=== PATIENT | female | born 1955 | race Caucasian/White ===

== ENCOUNTER 2017-09-28 00:04 | Emergency (ER) | payer BC, OTHER ==
--- NOTE | 2017-09-28 01:10 | EDPHYS ---
Physician Documentation [facility] Name: Qi Aguirre Age: 62 yrs Sex: Female : 1955 Arrival Date: 09/28/2017 Time: 00:04 Bed 19 Private MD: ED Physician Stewart Kim HPI: 09/28 00:58 This 62 yrs old Female presents to ER via Ambulatory with complaints of High jmm Blood Pressure. 00:58 The patient has elevated blood pressure and discovered this at home. Onset: The jmm symptoms/episode began/occurred yesterday. Modifying factors:. Associated signs and symptoms: Pertinent positives: headache. This is a 62 year old female with a history of htn that presents to the ED with elevated blood pressure which she noticied after developing a headache yesterday. Patient states headache is similar in nature to previous headaches. Patient denies chest pain or shortness of breath. Denies difficulty with urinations. States she was afraid to take old BP medication and requests refill. . Historical: - Allergies: 00:30 Sulfa (Sulfonamide Antibiotics); ea - PMHx: 00:30 Hypertension; ea - PSHx: 00:30 cataract surgery; ea - Immunization history:: Adult Immunizations not up to date. - Social history:: Smoking status: Patient/guardian denies using tobacco. - Ebola Screening: : No symptoms or risks identified at this time. ROS: 00:58 Constitutional: Negative for fever, chills, and weight loss, Cardiovascular: Negative jmm for chest pain, palpitations, and edema, Respiratory: Negative for shortness of breath, cough, wheezing, and pleuritic chest pain, Abdomen/GI: Negative for abdominal pain, nausea, vomiting, diarrhea, and constipation, Back: Negative for injury and pain, MS/Extremity: Negative for injury and deformity. 00:58 Neuro: Positive for headache. 00:58 All other systems are negative. Exam: 00:58 Head/Face: atraumatic. Chest/axilla: Normal chest wall appearance and motion. jmm Nontender with no deformity. No lesions are appreciated. Cardiovascular: Regular rate and rhythm. No gallops, murmurs, or rubs. Full/Equal distal pulses. Respiratory: Lungs have equal breath sounds bilaterally, clear to auscultation. No rales, rhonchi or wheezes noted. No increased work of breathing, no retractions or nasal flaring. Abdomen/GI: Soft, non-tender, with normal bowel sounds. No distension or tympany. No guarding or rebound. No evidence of tenderness throughout. 00:58 Constitutional: The patient appears in no acute distress, alert, awake. 00:58 Musculoskeletal/extremity: ROM: intact in all extremities. 00:58 Skin: Appearance: Color: normal in color. 00:58 Neuro: Orientation: is normal, Mentation: is normal, Memory: is normal, Gait: is steady. Vital Signs: 00:25 BP 181 / 101; Pulse 68; Resp 18; Temp 97.6(O); Pulse Ox 99% on R/A; Weight 64.41 kg; ea Height 5 ft. 4 in. (162.56 cm); Pain 0/10; 00:42 BP 158 / 92; Pulse 66; Resp 15; Pulse Ox 98% on R/A; mw2 01:53 BP 166 / 92; Pulse 60; Resp 18 S; Temp 97.8(O); Pulse Ox 99% ; Pain 0/10; ea 00:25 Body Mass Index 24.37 (64.41 kg, 162.56 cm) ea MDM: 00:48 Patient medically screened. [facility] 00:58 Data reviewed: vital signs, nurses notes. Counseling: I had a detailed discussion with christina the patient and/or guardian regarding: the historical points, exam findings, and any diagnostic results supporting the discharge/admit diagnosis, the need for outpatient follow up, to return to the emergency department if symptoms worsen or persist or if there are any questions or concerns that arise at home. Administered Medications: No medications were administered Disposition: 06:53 Co-signature as Attending Physician, Stewart Kim MD. rn Disposition: 09/28/17 01:09 Discharged to Home. Impression: Hypertension. - Condition is Stable. - Discharge Instructions: Hypertension. - Prescriptions for Enalapril Maleate 5 mg Oral Tablet - take 1 tablet by ORAL route once daily; 30 tablet. - Medication Reconciliation Form, Thank You Letter, Antibiotic Education, Prescription Opioid Use form. - Follow up: Private Physician; When: 2 - 3 days; Reason: Recheck today's complaints. Signatures: Kade Hood PA PA m Kim, Stewart, Usha Conte MD, rn RN RN ea Corrections: (The following items were deleted from the chart) 01:54 01:09 09/28/2017 01:09 Discharged to Home. Impression: Hypertension. Condition is ea Stable. Forms are Medication Reconciliation Form, Thank You Letter, Antibiotic Education, Prescription Opioid Use. Follow up: Private Physician; When: 2 - 3 days; Reason: Recheck today's complaints. christina
--- NOTE | 2017-09-28 01:10 | ER ---
Nurse's Notes [facility] Name: Qi Aguirre Age: 62 yrs Sex: Female : 1955 Arrival Date: 09/28/2017 Time: 00:04 Bed 19 Private MD: Diagnosis: Hypertension Presentation: 09/28 00:25 Presenting complaint: Patient states: Reports her diastolic blood pressure was 121 at ea home. Reports she has ho blood pressure meds and only takes it when she has bouts of high blood pressure. Transition of care: patient was not received from another setting of care. Onset of symptoms was September 28, 2017. Risk Assessment: Do you want to hurt yourself or someone else? Patient reports no desire to harm self or others. Initial Sepsis Screen: Does the patient meet any 2 criteria? No. Patient's initial sepsis screen is negative. Does the patient have a suspected source of infection? No. Patient's initial sepsis screen is negative. Care prior to arrival: None. 00:25 Method Of Arrival: Ambulatory ea 00:25 Acuity: SRI 3 ea Triage Assessment: 00:25 General: Appears in no apparent distress. Behavior is calm, cooperative, appropriate ea for age. Pain: Denies pain. EENT: No signs and/or symptoms were reported regarding the EENT system. Neuro: Level of Consciousness is awake, alert, obeys commands, Oriented to person, place, time, situation. Cardiovascular: Heart tones S1 S2 present Patient's skin is warm and dry. Respiratory: Airway is patent Respiratory effort is even, unlabored, Respiratory pattern is regular, symmetrical. GI: No signs and/or symptoms were reported involving the gastrointestinal system. : No signs and/or symptoms were reported regarding the genitourinary system. Derm: Skin is pink, warm \T\ dry. Musculoskeletal: No signs and/or symptoms reported regarding the musculoskeletal system. Historical: - Allergies: 00:30 Sulfa (Sulfonamide Antibiotics); ea - PMHx: 00:30 Hypertension; ea - PSHx: 00:30 cataract surgery; ea - Immunization history:: Adult Immunizations not up to date. - Social history:: Smoking status: Patient/guardian denies using tobacco. - Ebola Screening: : No symptoms or risks identified at this time. Screenin:33 Abuse screen: Denies threats or abuse. Nutritional screening: No deficits noted. ea Tuberculosis screening: No symptoms or risk factors identified. Fall Risk None identified. Assessment: 00:34 Reassessment: see triage assessment. ea 01:45 Reassessment: Patient and/or family updated on plan of care and expected duration. Pain ea level reassessed. Patient is alert, oriented x 3, equal unlabored respirations, skin warm/dry/pink. Discharge instructions given to patient, verbalized understanding of instructions. Patient states symptoms have improved. Vital Signs: 00:25 BP 181 / 101; Pulse 68; Resp 18; Temp 97.6(O); Pulse Ox 99% on R/A; Weight 64.41 kg; ea Height 5 ft. 4 in. (162.56 cm); Pain 0/10; 00:42 BP 158 / 92; Pulse 66; Resp 15; Pulse Ox 98% on R/A; mw2 01:53 BP 166 / 92; Pulse 60; Resp 18 S; Temp 97.8(O); Pulse Ox 99% ; Pain 0/10; ea 00:25 Body Mass Index 24.37 (64.41 kg, 162.56 cm) ea ED Course: 00:04 Patient arrived in ED. ds1 00:23 Kade Hood PA is PHCP. christina 00:24 Stewart Kim MD is Attending Physician. christina 00:25 Usha Simon RN is Primary Nurse. ea 00:27 Triage completed. ea 00:33 Arm band placed on right wrist. ea 00:34 Patient has correct armband on for positive identification. Placed in gown. Bed in low ea position. Call light in reach. Side rails up X 1. 01:46 No provider procedures requiring assistance completed. Patient did not have IV access ea during this emergency room visit. Administered Medications: No medications were administered Outcome: 01:09 Discharge ordered by . christina 01:52 Discharged to home ambulatory. ea 01:52 Condition: improved 01:52 Discharge instructions given to patient, Instructed on discharge instructions, follow up and referral plans. medication usage, Demonstrated understanding of instructions, follow-up care, medications, Prescriptions given X 1. 01:54 Patient left the ED. ea Signatures: Kade Hood PA PA jmm [place], Demi ds1 Usha Simon RN RN Pb Juarez mw2
== END 2017-09-28 01:54 | disposition home or self-care (01) ==
LOC: ER 00:04
DX: I10 Essential (primary) hypertension (principal); Z88.2 Allergy status to sulfonamides
CPT/HCPCS: 99282